=== PATIENT | male | born 2005 | race Caucasian/White ===

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

== ENCOUNTER 2024-05-28 08:44 | Emergency (ER) | payer BC ==
[~2024-05-28] VITALS: Ht 182.9 cm; Wt 68.2 kg
[2024-05-28 08:56] VITALS: TEMP 99.6
[2024-05-28] MEDS ORDERED: Albuterol/Ipratropium 3 MG-0.5 MG/3 ML Neb Soln IH ONE (10:00)
[2024-05-28] MEDS ORDERED: predniSONE 20 MG TAB PO ONE (10:00)
[2024-05-28] MEDS ORDERED: NS 1,000 ML IV ONE (10:00)
[2024-05-28 10:30] LABS: BASO # 0.1 K/mm3 (0.0-0.2); BASO % 0.6 % (0.0-2.0); EOS % 0.2 % (0.0-4.0); GRAN % 77.1 % (42.2-75.2); HEMATOCRIT 45.1 % (36.0-47.0); HEMOGLOBIN 16.3 g/dl (12.5-16.1); LYMPH # 1.6 K/mm3 (1.2-3.4); LYMPH % 13.7 % (20.0-51.0); MEAN CELL VOLUME 85 fl (80.0-95.0); MEAN CORPUSCULAR HEMOGLOBIN 31 pg (26-32); MEAN CORPUSCULAR HGB CONC 36 g/dl (33.0-37.0); MEAN PLATELET VOLUME 11.8 fl (7.4-10.4); MONO % 8.1 % (1.7-9.3); PLATELET COUNT 230 K/mm3 (130-400); REDCELL DISTRIBUTION WIDTH-CV 12.2 % (11.5-14.5)
[2024-05-28 10:45] LABS: BILIRUBIN,TOTAL 0.8 mg/dL (0.2-1.2); CREATININE, serum 0.86 mg/dL (0.72-1.25); POTASSIUM 3.7 mEq/L (3.5-4.5)
[2024-05-28] MEDS ORDERED: CIPRO 500MG TA500 MG PO (11:52)
[2024-05-28] MEDS ORDERED: PREDNISONE20 MG PO (11:52)
[2024-05-28 12:15] VITALS: BP 102/58; PULSE 105
== END 2024-05-28 12:15 | disposition home or self-care (01) ==
LOC: COL.ER 08:44
PROVIDERS: Family Medicine
DX: J18.9 Pneumonia, unspecified organism (principal); J45.909 Unspecified asthma, uncomplicated; Z79.51 Long term (current) use of inhaled steroids
CPT/HCPCS: J7030; J7512

== ENCOUNTER 2024-06-05 08:35 | Emergency (ER) | payer BC ==
[~2024-06-05] VITALS: Ht 182.9 cm; Wt 68.2 kg
[~2024-06-05 08:35] MED LIST changes: +CIPRO 500MG TA500 MG PO; +PREDNISONE20 MG PO
[2024-06-05 08:39] VITALS: BP 111/72; PULSE 83; TEMP 97.7
[2024-06-05] MEDS ORDERED: PREDNISONE20 MG PO (09:28)
== END 2024-06-05 09:34 | disposition home or self-care (01) ==
LOC: COL.ER 08:35
DX: R06.00 Dyspnea, unspecified (principal)